=== PATIENT | male | born 1980 | race Caucasian/White ===

== ENCOUNTER → 2016-05-22 | Outpatient (CLI) | payer OTHER ==
[~2016-05-22] MED LIST: IBUP-103 PO; NAPR1TAB9 PO
--- NOTE | 2016-05-22 09:49 | DIAGNOSTIC IMAGING REPORT ---
RIGHT WRIST MIN 3 VIEWS ROUTINE CLINICAL HISTORY: Right wrist pain. COMPARISON: None FINDINGS: No acute fracture is identified. Alignment of the right wrist is anatomic. Scaphoid appears intact. Joint spaces are preserved. No erosions are identified. IMPRESSION: Unremarkable right wrist radiographs. Electronically signed by: Mikey Stahl M.D. 05/22/2016 9:48 AM Dictated Date/Time: 05/22/2016 9:47 AM
--- NOTE | 2016-05-22 09:50 | DIAGNOSTIC IMAGING REPORT ---
RIGHT THIRD FINGER 3 VIEWS CLINICAL HISTORY: Joint swelling. FINDINGS: 3 views of the right third finger are obtained. No prior studies are available for comparison at the time of dictation. The skeletal structures are well mineralized. A punctate ossific density is seen anterior to the proximal interphalangeal joint. A tiny avulsion fracture is not excluded. No additional findings are concerning for acute fracture. The third metacarpophalangeal and interphalangeal joint spaces appear preserved. Soft tissue swelling is present around the proximal interphalangeal joint. IMPRESSION: 1. A punctate ossific density is identified anterior to the base of the third middle phalanx. A tiny avulsion fracture is not excluded. 2. No additional findings are concerning for fracture. 3. Soft tissue swelling is present around the proximal interphalangeal joint. Electronically signed by: Alonso Alvares M.D. 05/22/2016 9:49 AM Dictated Date/Time: 05/22/2016 9:47 AM
== END | disposition home or self-care (01) ==
LOC: C.RADPV 09:25
PROVIDERS: ATTEND Family Medicine
DX: M25.441 Effusion, right hand (principal); M25.531 Pain in right wrist

== ENCOUNTER 2016-10-11 16:51 | Emergency (ER) | payer OTHER ==
[~2016-10-11] VITALS: Ht 188 cm; Wt 86.4 kg
[~2016-10-11 16:51] MED LIST changes: -NAPR1TAB9 PO
[2016-10-11 16:56] VITALS: TEMP 36.8; Ht 188 cm; Wt 86.4 kg
[2016-10-11] MEDS ORDERED: MoRPHine SULFATE 10 MG/ML CARP/VIAL IM STA (17:06)
[2016-10-11] MEDS ORDERED: KETOROLAC TROMETHAMINE 60 MG/2 ML VIAL IM STA (17:06)
[2016-10-11] MEDS ORDERED: ONDANSETRON 4MG OD TAB PO ONE (17:15)
--- NOTE | 2016-10-11 17:55 | DIAGNOSTIC IMAGING REPORT ---
LEFT SHOULDER 3 VIEWS HISTORY: L shoulder injury COMPARISON: None. FINDINGS: There is no fracture or dislocation. Soft tissues are unremarkable. No radiopaque foreign bodies. The left clavicle is intact. IMPRESSION: No fractures. Electronically signed by: Rom Bello M.D. 10/11/2016 5:54 PM Dictated Date/Time: 10/11/2016 5:53 PM
[2016-10-11 18:40] VITALS: BP 127/83; PULSE 75; O2SAT 99
[2016-10-11] MEDS ORDERED: NAPR1TAB9 PO (19:23)
--- NOTE | 2016-10-12 00:11 | EMERGENCY ROOM VISIT NOTE ---
History First contact with patient: 17:01 Chief Complaint: ARM PAIN Stated Complaint: LEFT SHOULDER/ARM PAIN-WC History of Present Illness The patient is a 36 year old male who presents to the Emergency Room with complaints of a construction injury to his left shoulder this afternoon. 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 He now reports pain through the posterior and anterior aspect of the arm, as well as anterior shoulder region. He denies any pain extending into the neck. He denies paresthesias or numbness of the left upper extremity. The patient reports that he did have a left shoulder arthroscopy performed [address] Souza for generalized degradation of the shoulder. From patient history, it appears that he had a subacromial decompression in general shoulder debridement. Dr. Souza did see some rotator cuff tears, but suggested that the patient wait to see how he responded to arthroscopic treatment. The patient reports that he has had no problems at all with the shoulder since his arthroscopy. The patient is right- hand-dominant, and currently rates his pain a 7 out of 10. Review of Systems 10 system review was performed and was negative except for pertinent positives and negatives as indicated in history of present illness Past Medical/Surgical History Medical Problems: (1) Depressive Disorder Nec (2) Lumbago (3) Tobacco Use Disorder Surgical Problems: (1) History of appendectomy (2) History of arthroscopy of left shoulder Family History Cancer Social History Smoking Status: Current Every Day Smoker Alcohol Use: occasionally Marital Status: , in relationship Housing Status: lives with family Occupation Status: employed Current/Historical Medications Scheduled Ibuprofen Tab (Advil), 800 MG PO PRN UD Scheduled PRN Naproxen (Aleve), 400 MG PO Q12 PRN for Pain Physical Exam Vital Signs Date Time Temp Pulse Resp B/P (MAP) Pulse Ox O2 Delivery O2 Flow Rate FiO2 10/11/16 18:40 75 19 127/83 99 10/11/16 16:56 36.8 73 18 147/73 98 Room Air Physical Exam CONSTITUTIONAL: Healthy and well nourished. Alert and oriented X 3 with positive affect. Patient appears in moderate discomfort from his pain. HEENT: Normocephalic, atraumatic. Pupils equal, round and reactive. NECK: Full active range of motion without discomfort. RESPIRATORY: Clear to auscultation bilaterally with no wheezing, crackles, rhonchi or stridor. CARDIOVASCULAR: Regular rate and rhythm with no murmurs, rubs or gallops. MUSCULOSKELETAL: Examination of the left shoulder does not show any significant soft tissue edema, ecchymosis or open wounds. He is significantly tender over the triceps and biceps region. No palpable muscle bulging or ecchymosis noted. He is also tender through the acromioclavicular joint, bicipital groove and posterior shoulder region. Any attempted range of motion worsens his discomfort. He has no tenderness to palpation through the left pectoralis major region. Capillary refill of the left hand and fingers is less than 2 seconds. INTEGUMENTARY: No rash or other significant dermatologic conditions noted. NEUROLOGIC: No focal neurologic deficits noted. Left deltoid sensation is intact. Left hand and fingers are also sensory intact. Medical Decision & Procedures ER Provider Diagnostic Interpretation: My interpretation of left shoulder x-rays does not show any acute fractures or dislocation. Radiologist report is as follows: LEFT SHOULDER 3 VIEWS HISTORY: L shoulder injury COMPARISON: None. FINDINGS: There is no fracture or dislocation. Soft tissues are unremarkable. No radiopaque foreign bodies. The left clavicle is intact. IMPRESSION: No fractures. Medications Administered Medications (Trade) Dose Ordered Sig/Ariane Route Start Time Stop Time Status Last Admin Dose Admin Morphine Sulfate (MoRPHine SULFATE INJ) 10 mg NOW STAT IM 10/11/16 17:06 10/11/16 17:08 DC 10/11/16 17:22 10 MG Ketorolac Tromethamine (Toradol Inj) 60 mg NOW STAT IM 10/11/16 17:06 10/11/16 17:08 DC 10/11/16 17:23 60 MG Ondansetron HCl (Zofran Odt) 4 mg ONE ONCE PO 10/11/16 17:15 10/11/16 17:16 DC 10/11/16 17:22 4 MG ED Course Patient history and physical exam were performed. Nurse's notes were reviewed. Vital signs were reviewed and were normal. The patient did request up if pain , as he took Motrin and Advil without relief. He was administered IM morphine and Toradol, along with Zofran ODT. X-rays of the left shoulder were normal. Review of the [place] Prescription Drug Monitoring Program shows that the patient is currently on Suboxone treatment through a prescriber in [place]. Therefore, the patient was advised that the emergency department would not provide further prescription narcotics. The patient was offered prescriptions for Naprosyn and Flexeril. It is noted that the patient has a possible allergic reaction to second benzopyrene, however this was also taken with bupropion. 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 The patient was also advised that he must contact his pain management clinic to advise them of his visit, and to discuss other needed pain management with his acute shoulder injury. The patient was happy with plan of care, voiced understanding of all discharge instructions, and rated his pain a 4 out of 10 at the time of discharge. Medical Decision [place] Drug Monitoring Program Search Results: patient reviewed within database, see additional documentation Blood Pressure Screening Patient's blood pressure: Normal blood pressure Impression Primary Impression: Injury of left shoulder Additional Impression: Work related injury Departure Information Referrals Naomi Arevalo C.R.NMaribellP (PCP) Patient Instructions [facility] Problem Qualifiers Primary Impression: Injury of left shoulder Encounter type: initial encounter Qualified Codes: S49.92XA - Unspecified injury of left shoulder and upper arm, initial encounter
== END 2016-10-11 18:41 | disposition home or self-care (01) ==
LOC: C.EDB 16:52 → C.EDD 18:41
DX: S49.92XA Unspecified injury of left shoulder and upper arm, initial encounter (principal); X58.XXXA Exposure to other specified factors, initial encounter; Y92.89 Other specified places as the place of occurrence of the external cause; Y99.0 Civilian activity done for income or pay; F32.9 Major depressive disorder, single episode, unspecified; F17.200 Nicotine dependence, unspecified, uncomplicated; Z80.9 Family history of malignant neoplasm, unspecified